=== PATIENT | female | born 1975 | race Caucasian/White ===

== ENCOUNTER → 2023-05-16 08:20 | Outpatient (REF) | payer OTHER, SELFPAY | LOC: WDC 08:20 | PROVIDERS: ATTENDING PHYSICIAN Nurse Practitioner Adult Health | DX: R92.8 Other abnormal and inconclusive findings on diagnostic imaging of breast (principal) | CPT/HCPCS: 76642 ==

== ENCOUNTER → 2024-02-06 17:17 | Outpatient (REF) | payer OTHER, SELFPAY | LOC: RAD 17:17 | PROVIDERS: ATTENDING PHYSICIAN Nurse Practitioner Adult Health | DX: N93.9 Abnormal uterine and vaginal bleeding, unspecified (principal) | CPT/HCPCS: 76830; 76856 ==

== ENCOUNTER → 2024-06-19 10:03 | Outpatient (REF) | payer OTHER, SELFPAY ==
[2024-06-19 11:56] LABS: % Basophils 0.5 % (0-2); % Eosinophils 0.5 % (0-6); % Immature Granulocytes 0.4 % (0-0.5); % Lymphocytes 17.5 % (20.5-51.1); % Monocytes 3.9 % (1.7-9.3); % Neutrophils 77.2 % (42.2-75.2); Absolute Basophils 0.1 10^3/uL (0-0.2); Absolute Eosinophils 0.1 10^3/uL (0-0.7); Absolute Immature Granulocytes 0.1 10^3/uL (0-0.05); Absolute Lymphocytes 2.4 10^3/uL (1.2-3.4); Absolute Monocytes 0.5 10^3/uL (0.1-0.6); Absolute Neutrophils 10.8 10^3/uL (1.4-6.5); Hematocrit 43.9 % (37.0-47.0); Hemoglobin 14.6 g/dL (12.0-16.0); Mean Corp Hgb Conc. 33.3 g/dL (33.0-37.0); Mean Corpuscular Hgb 31.6 pg (27.0-31.0); Mean Platelet Volume 9.9 fL (7.4-10.4); Nucleated Red Blood Cells % 0 %; Platelet Count 290 10^3/uL (130-400); Red Blood Cell Count 4.62 10^6/uL (4.20-5.40)
[2024-06-19 12:47] LABS: ALT (SGPT) 22 U/L (0-35); AST (SGOT) 21 U/L (14-36); Albumin 4.5 g/dl (3.5-5.0); Alkaline Phosphatase 94 U/L (38-126); Amylase 82 U/L (30-110); Blood Urea Nitrogen 11 mg/dl (7-17); Calcium 9.6 mg/dl (8.4-10.2); Carbon Dioxide 27 mmol/L (22-30); Chloride 105 mmol/L (98-107); Glucose 88 mg/dl (70-99); Lipase 186 U/L (23-300); Sodium 141 mmol/L (135-145); Total Bilirubin 0.7 mg/dl (0.2-1.3); Total Protein 7.1 g/dl (6.3-8.2); eGFR > 60.00
== END ==
LOC: RAD 10:03
PROVIDERS: ATTENDING PHYSICIAN Nurse Practitioner Adult Health
DX: R10.11 Right upper quadrant pain (principal); R10.13 Epigastric pain
CPT/HCPCS: 36415; 76700; 80053; 82150; 83690; 85025

== ENCOUNTER 2024-06-19 16:19 | Emergency (ER) | payer OTHER, SELFPAY ==
[2024-06-19 16:24] VITALS: BP 169/104
[2024-06-19 17:00] LABS: % Basophils 0.6 % (0-2); % Eosinophils 1.1 % (0-6); % Immature Granulocytes 0.4 % (0-0.5); % Lymphocytes 21.3 % (20.5-51.1); % Monocytes 4.4 % (1.7-9.3); % Neutrophils 72.2 % (42.2-75.2); Absolute Basophils 0.1 10^3/uL (0-0.2); Absolute Eosinophils 0.1 10^3/uL (0-0.7); Absolute Immature Granulocytes 0.1 10^3/uL (0-0.05); Absolute Lymphocytes 2.5 10^3/uL (1.2-3.4); Absolute Monocytes 0.5 10^3/uL (0.1-0.6); Absolute Neutrophils 8.6 10^3/uL (1.4-6.5); Hematocrit 41.9 % (37.0-47.0); Hemoglobin 14.2 g/dL (12.0-16.0); Mean Corp Hgb Conc. 33.9 g/dL (33.0-37.0); Mean Corpuscular Hgb 31.6 pg (27.0-31.0); Mean Corpuscular Volume 93.3 fL (81.0-99.0); Mean Platelet Volume 9.7 fL (7.4-10.4); Nucleated Red Blood Cells % 0 %; Platelet Count 289 10^3/uL (130-400); Red Blood Cell Count 4.49 10^6/uL (4.20-5.40); Red Cell Dist. Width 12.8 % (11.5-14.5); White Blood Cell Count 11.8 10^3/uL (4.8-10.8)
[2024-06-19 17:05] LABS: Urine Albumin 1+ (Neg - Trace); Urine Bilirubin Negative (Negative); Urine Character Clear (Clear); Urine Color Yellow; Urine Glucose Negative (Negative); Urine Ketone Negative (Negative); Urine Leukocyte 1+ (Negative); Urine Nitrite Negative (Negative); Urine Occult Blood 1+ (Negative); Urine Urobilinogen 1+ (Neg - 1+)
[2024-06-19 17:20] LABS: Urine Squamous Cell 26-30 /LPF (Few)
[2024-06-19 17:22] LABS: Urine Bacteria Few (Negative); Urine Mucus Moderate; Urine White Cell 0-2 /HPF (0-5)
[2024-06-19 17:25] LABS: Troponin I < 0.012 ng/ml
[2024-06-19 17:31] LABS: ALT (SGPT) 21 U/L (0-35); AST (SGOT) 20 U/L (14-36); Albumin 4.3 g/dl (3.5-5.0); Alkaline Phosphatase 81 U/L (38-126); Blood Urea Nitrogen 11 mg/dl (7-17); Calcium 9.2 mg/dl (8.4-10.2); Carbon Dioxide 25 mmol/L (22-30); Chloride 106 mmol/L (98-107); Glucose 77 mg/dl (70-99); Lipase 236 U/L (23-300); Potassium 3.8 mmol/L (3.5-5.1); Sodium 140 mmol/L (135-145); Total Bilirubin 0.5 mg/dl (0.2-1.3); Total Protein 6.9 g/dl (6.3-8.2); eGFR > 60.00
[2024-06-19 18:09] LABS: HCG, Serum Qualitative Screen Negative
[2024-06-19 18:35] VITALS: BP 162/96
[2024-06-19 20:02] VITALS: BP 143/77
[2024-06-19 20:07] VITALS: BMI 28.1
[2024-06-19] MEDS: NSS 500 IV (20:16)
[2024-06-19 21:11] VITALS: BP 138/90
--- NOTE | 2024-06-19 21:38 | ED.GENMED ---
History of Present Illness
General
Chief Complaint: Abdominal Pain
Source: patient
Exam Limitations: none
Time Seen by Provider: 06/19/24 19:35
Nursing documentation reviewed up to this point in time: agreed with
History of Present Illness
History of Present Illness:
Patient is a 48-year-old female presenting to the emergency department with intermittent upper abdominal pain X 5 days. Patient states she has had multiple episodes of epigastric pain over the past 5 nights. Symptoms seem intermittent throughout
the day although most severe episodes occur at night. These episodes are associated with nausea although no vomiting. Patient has no known fever. She denies chills. She has had no episodes of vomiting, diarrhea, or constipation. She denies any
associated exertional chest pain or shortness of breath.
She believes that these have been 'gallbladder attacks '. She states she has never been diagnosed with gallstones in the past.
Patient was seen by primary care who ordered basic lab work and an abdominal ultrasound. Patient was contacted by her PCP stating her white blood cell count was elevated and her abdominal ultrasound was abnormal prompting visit to the emergency
department.
By my assessment�patient is asymptomatic at this time. She denies any current pain, nausea, fever. No chest pain or shortness of breath.
Review of Systems
Review of Systems
Allergies reviewed?: Yes
All Other Systems: ROS reviewed and negative except as documented in HPI and ROS
Phy Exam
Physical Exam
Physical Exam:
Vitals: Hypertensive, tachycardic on arrival�improved by my assessment.
General: Patient is very well-appearing, no apparent distress. Nontoxic appearing
Skin: Warm and dry, no rashes or lesions
Head: Normocephalic, atraumatic
Eyes: Sclera nonicteric. EOMs intact. No nystagmus.
Throat: Protecting airway
Neck: Normal ROM, no cervical spine tenderness, no meningismus
Cardiac: Regular rate and rhythm, no murmurs.
Pulm: Normal respiratory effort, no wheezes, rales, rhonchi heard on exam.
Abdomen: Abdomen soft and nontender. Specifically no tenderness in epigastric/right upper quadrant. Negative Trujillo sign. No tenderness in McBurney's point.
Extremities: No evidence of cyanosis or edema. Palpable DP pulses bilaterally
Neuro: AAOx3. Grossly intact
Psychiatric: Normal affect.
Course
Orders/Labs/Results
Orders:
Orders
06/19/24 16:26
EKG [Electrocardiogram (*1)] Urgent
Reason for Study: Abdominal Pain
EKG- Treatment ONCE
06/19/24 16:29
Test Result ONCE
06/19/24 16:44
Comprehensive Metabolic Panel Urgent
HCG, Serum Qualitative Screen Urgent
Lipase Urgent
Troponin I Urgent
06/19/24 16:45
Complete Blood Count/With Diff Urgent
Urinalysis Reflex To Culture Urgent
Date Specimen was Collected: 06/19/24
Time Specimen was Collected: 16:29
Urine Microscopic Reflex Cult Urgent
Urine Culture Urgent
CHRISTEN Source: U
Specimen Description:
Date Specimen was Collected: 06/19/24
Time Specimen was Collected: 16:29
06/19/24 20:05
CT Abd/pelvis W Iv Cont Urgent
Comment:
Reason For Exam: epigastric pain, nausea
06/19/24 20:06
0.9% Sodium Chloride 500 ml [Nss] 500 ml IV BOLUS
06/19/24 22:50
Pantoprazole [Protonix] 40 mg PO NOW STA
Abnormal Lab Results
06/19/24
16:45
WBC 11.8 H 10^3/uL
(4.8-10.8)
MCH 31.6 H pg
(27.0-31.0)
Abs Immat Gran (auto) 0.1 H 10^3/uL
(0-0.05)
Absolute Neuts (auto) 8.6 H 10^3/uL
(1.4-6.5)
Ur Occult Blood Reflex 1+ A
(Negative)
Leukocyte Esterase Rfl 1+ A
(Negative)
Urine RBC 3-6 A /HPF
(0-2)
Urine Bacteria (Reflex) Few A
(Negative)
Urine Albumin (Reflex) 1+ A
(Neg - Trace)
06/19/24 16:45
06/19/24 16:44
Vital Signs
Initial and Last Documented VS:
Initial Vital Signs
Temp Pulse Resp BP Pulse Ox
98.9 F 110 17 169/104 99
06/19/24 16:24 06/19/24 16:24 06/19/24 16:24 06/19/24 16:24 06/19/24 16:24
Last Documented Vital Signs
Temp Pulse Resp BP Pulse Ox
98.9 F 93 18 136/83 100
06/19/24 16:24 06/19/24 18:35 06/19/24 18:35 06/19/24 22:00 06/19/24 22:30
MDM/Problems Addressed
Differential Diagnosis Includes:
Not limited to: Biliary colic, acute cholecystitis, choledocholithiasis, cholangitis, pancreatitis, GERD, peptic ulcer, etc.
MDM/Problems Addressed:
49-year-old female presenting with intermittent upper abdominal pain for the past 5 days associated with nausea. Patient sent to ED after abnormal abdominal ultrasound and lab work by PCP today. Patient denies any current abdominal pain, nausea,
or fever. No exertional chest pain or shortness of breath. Patient hypertensive and tachycardic on arrival although normalized on my assessment. Otherwise vital signs are stable. Patient very well-appearing. Abdomen soft and nontender.
Negative Trujillo sign. Basic labs initiated triage significant for mild leukocytosis of 11.8. Chemistry unremarkable with no abnormal LFTs. Lipase is normal. A troponin was ordered and undetectable�do not suspect acute coronary syndrome.
Outpatient lab work reviewed which did show a white count of 14 which in comparison to labs drawn in ED appear to be trending down. Abdominal ultrasound report shows no acute abnormalities, no evidence of gallstones or findings of acute
cholecystitis. Overall low suspicion for acute infection today although will check CT abdomen/pelvis for further evaluation.
Update: CT abdomen/pelvis without acute abnormalities. Gallbladder is normal. Workup in ED negative. No evidence of acute infectious process today. Other differential considerations include GERD or ulcer. Patient remains well in Appearing in no
distress. Feel stable for discharge home. Will initiate PPI therapy and advise close primary care follow-up. She may need GI follow-up in the future for endoscopy. Prescription sent to pharmacy. Close return precautions discussed.
Chronic conditions affecting care:
N/A
Acute Exacerbation and/or Progression of Chronic Illness:
N/A
*Radiology
Radiology exam reviewed: radiology read reviewed
*Pulse Oximetry
Patient hypoxic: no
*EKG
Interpreted by ED Provider?: Yes
EKG Intrepretation Date: 06/19/24
Interpretation: abnormal
Comparison EKG: no comparison EKG present
Heart Rate: 104
Rate: tachycardiac
Rhythm: sinus
[place]: normal axis
Interval: normal QT interval
QRS Pattern: normal QRS
Ischemia: no ischemia
*[employer]ic Interpretation
Rate: [employer]ic- N/A
*Critical Care Note
Total Time (30-74mins, 75-104mins- exclusive of procedures): Not Applicable
Data Reviewed
Review of Other/Old Records Reveals: Labs (Labs obtained outpatient today-significant for leukocytosis of 14) and Radiology Studies (Abdominal ultrasound performed outpatient today-no evidence of gallstones or acute cholecystitis)
Source: previous radiology exam and previous hospital records
ED Attending Note
-
Portions of this chart may have been created with voice recognition software.� Occasional wrong word or��sound alike� substitutions may have occurred due to the inherent limitations of voice recognition software.
Discharge Plan
Departure
Patient Disposition: Home (Routine Discharge)
Date of Disposition: 06/19/24
Time of Disposition: 22:46
Patient with high blood pressure during this ER visit?: Yes
Condition: Good
Covid-19: Not Applicable
Discharge Problem:
Abdominal pain
Instructions: Acid Reflux and GERD in Adults (DC), Abdominal Pain, BLOOD PRESSURE
Prescriptions:
New
pantoprazole 40 mg tablet,delayed release (DR/EC)
40 mg PO DAILY Qty: 14 0RF
Referrals:
Myriam Jacinto CRNP [Family Provider] - Follow up in 5-7 days
Activity Restrictions/Additional Instructions:
Return to the emergency department with any fevers, persistent/severe abdominal pain, severe back pain, intractable nausea/vomiting, lack of appetite, worsening in current symptoms, or any other concerns
- As discussed�your white blood cell count was mildly elevated 11.8 today. Your chemistry panel showed no acute abnormalities. Your liver function tests were normal. You did have a few red blood cells noted in your urine which I suspect to be
likely secondary to your menstrual cycle although you should have this rechecked to ensure resolves.
- CT scan showed no acute abnormalities. Specifically no abnormalities of your gallbladder.
-I have sent a prescription to your pharmacy for a PPI to treat acid reflux. You should take this once a day for the next 2 weeks.
- Follow-up with your primary care for further evaluation/management early next week and to ensure that symptoms are improving.
Monitor your symptoms closely and return to the emergency department with any acute worsening/new symptoms or any other concerns
Interventions
Interventions:
*Risk Screen - Suicide Last Done: 06/19/24 16:27
*General Assessment Last Done: 06/19/24 16:27
*Neglect/Abuse Screening Last Done: 06/19/24 16:27
*ED- Fall Risk Assessment Last Done: 06/19/24 20:10
*ED COVID-19 Vaccine History Last Done: 06/19/24 16:27
*Nursing Disposition Last Done: 06/19/24 23:04
QK-Guzqmw-Dkmlmqacgw Assessment Last Done: 06/19/24 20:10
Discharge Date and Time
Discharge Date/Time: 06/19/24 23:05
Print Language: WELSH
[2024-06-19 22:00] VITALS: BP 136/83
[2024-06-19] MEDS: PROTONIX 40 MG PO (22:58)
== END 2024-06-19 23:05 | disposition home or self-care (01) ==
LOC: EMR 16:19
PROVIDERS: Emergency Medicine; EMERGENCY PHYSICIAN Emergency Medicine; FAMILY PHYSICIAN Nurse Practitioner Adult Health
DX: R10.10 Upper abdominal pain, unspecified (principal); R03.0 Elevated blood-pressure reading, without diagnosis of hypertension; I10 Essential (primary) hypertension
CPT/HCPCS: 99285; 96360; 36415; 74177; 76700; 80053; 81003; 81015; 82150; 83690; 84484; 84703; 85025; 87086; 93005; Q9967